=== PATIENT | male | born 1960 | race Caucasian/White ===

== ENCOUNTER → 2019-08-22 | Outpatient (CLI) | payer OTHER ==
[~2019-08-22] MED LIST: FLOMAX0.4 MG PO
--- NOTE | 2019-08-22 18:26 | CARDNUC ---
[place] [address] CARDIAC NUCLEAR IMAGING REPORT Name: EVERETT AWDE Room: [facility]#: [id number] Admission: 08/22/19 Attend Phys: Edwin Butler, Discharge: Date of : 58 Date of Service: 08/22/19 1825 Report #: [id number] THIS REPORT FOR: //name// APPROVED REPORT Study performed: 08/22/2019 09:17:10 Exam: Nuclear Stress Test Indication: Palpitations Patient Location: Out-Patient Stress Tech: Juanis Grubbs Stress Nurse: Inge Sy RN NM Tech:IGOR Otero Ht: 5 ft 10 in Wt: 185 lbs BSA: 2.02 m2 BMI: 26.54 Medical History Medical History: no cardiac hx Medications: no cardiac meds Allergies: pcn Cardiac Risk Factors: age, family hx Previous Cardiac Procedures: none Exercise History: Physically active Stress Test Details Stress Test: Exercise stress testing was performed using a Robby protocol. HR Resting HR: 51 bpm Max Heart Rate (APMHR): 160 bpm Max HR Achieved: 158 bpm Target HR (85% APMHR): 136 bpm % of APMHR: 98 Recovery HR: 102 bpm BP Resting BP: 115/64 mmHg Max BP: 244/72 mmHg ECG Resting ECG: Sinus Rhythm Stress ECG: Sinus Tachycardia ST Change: None Arrhythmia: VPC's Recovery ECG: Sinus Rhythm Recovery ST Change: [place] [address] CARDIAC NUCLEAR IMAGING REPORT Name: EVERETT WADE Room: [facility]#: [id number] Admission: 08/22/19 Attend Phys: Edwin Butler, Discharge: Date of : 58 Date of Service: 08/22/19 1825 Report #: [id number] Recovery Arrhythmia: None Clinical Reason for Termination: Fatigue Exercise duration: 10 min 45 sec Exercise capacity: 13.04 METs Overall Exercise Capacity for Age: Superior Functional Aerobic Impairment 99% The patient tolerated stent but I'll exercise without significant cardiac symptoms. Stress ECG Conclusion The baseline 12-lead EKG shows sinus rhythm with unifocal premature ventricular contractions. EKGs obtained during exercise show sinus rhythm and sinus tachycardia. There were no significant ST segment changes noted. Early in exercise there were unifocal premature ventricular contractions in a pattern of bigeminy that resolved with faster heart rates. NM EXAM: Myocardial Perfusion REST/STRESS Imaging Protocol: Rest Tc-99m/Stress Tc-99m 1 day Resting Data Rest SPECT myocardial perfusion imaging was performed in supine position 30 minutes following the intravenous injection of 12.0 mCi of Tc-99m Sestamibi. Time of rest injection: 0750 Date: 08/22/2019 The images were gated to evaluate regional wall motion and calculate left ventricular ejection fraction. Administration Route: IV Administration Site: Left Hand Exercise Stress At peak stress, the patient was injected intravenously with 36.0mCi of Tc-99m Sestamibi. Time of stress injection: 929 Date: 08/22/2019 Administration Route: IV Administration Site: Left Hand Gated Stress SPECT was performed 30 minutes after stress injection. The images were gated to evaluate regional wall motion and calculate left ventricular ejection fraction. Prone imaging was performed. Study Quality Study: [place] [address] CARDIAC NUCLEAR IMAGING REPORT Name: EVERETT WADE Room: [facility]#: [id number] Admission: 08/22/19 Attend Phys: Edwin Butler, Discharge: Date of : 58 Date of Service: 08/22/19 1825 Report #: [id number] Artifact: Mild Diaphragmatic artifact Study Data At rest, the left ventricular ejection fraction was 56%.. Post stress, the left ventricular ejection was 53%.. TID = 0.88. Perfusion Perfusion images obtained at rest and post exercise showed mild photopenia in the inferior wall consistent with diaphragmatic attenuation artifact. There were no significant fixed or reversible defects. Wall Motion Normal left ventricular wall motion. Nuclear Conclusion ECG Findings: negative for ischemia Clinical Findings: negative for ischemia Nuclear Findings: negative for ischemia Exercise Capacity: normal Left Ventricular Function: normal Risk Study: low Myocardial perfusion images show no defect to suggest infarct or ischemia. Left ventricular systolic function is normal on gated studies with normal wall motion. This is a low risk study. <Conclusion> The baseline 12-lead EKG shows sinus rhythm with unifocal premature ventricular contractions. EKGs obtained during exercise show sinus rhythm and sinus tachycardia. There were no significant ST segment changes noted. Early in exercise there were unifocal premature ventricular contractions in a pattern of bigeminy that resolved with faster heart rates. <ELECTRONICALLY SIGNED> By: Edwin Butler MD, FACC 08/22/191824 24 24 Edwin Butler MD, FACC /INF
== END ==
LOC: M.NUC 08-11 08:24
DX: R00.2 Palpitations (principal)